=== PATIENT | female | born 1965 | race Caucasian/White ===

== ENCOUNTER 2022-07-26 06:26 | Day surgery (SDC) | payer BC ==
[~2022-07-26 06:26] MED LIST: Lactated Ringers 1,000 ML IV SCH; cefOXitin 2 GM in Premix Bag 1 BAG IV ONE
[2022-07-26] MEDS ORDERED: Scopolamine 1.5 MG Transdermal Patch TOP ONE (06:30)
[2022-07-26] MEDS ORDERED: Albuterol 0.083% 2.5 MG/3 ML Neb Soln NEB PRN (06:51)
[2022-07-26] MEDS ORDERED: Metoclopramide 10 MG/2 ML SDV IVPUSH PRN (06:51)
[2022-07-26] MEDS ORDERED: Ondansetron 4 MG/2 ML SDV IVPUSH PRN (06:51)
[2022-07-26] MEDS ORDERED: Morphine 2 MG/ML SYRINGE IVPUSH PRN (06:51)
[2022-07-26] MEDS ORDERED: HYDROmorphone 1 MG/ML Syringe IVPUSH PRN (06:51)
[2022-07-26] MEDS ORDERED: Naloxone 0.4 MG/ML SDV IVPUSH PRN (06:51)
[2022-07-26] MEDS ORDERED: fentaNYL 50 MCG/ML SDV IVPUSH PRN (06:51)
[2022-07-26] MEDS ORDERED: fentaNYL 100 MCG/2 ML SDV ONE ×4 (07:26→08:41)
[2022-07-26] MEDS ORDERED: Propofol 200 MG/20 ML SDV ONE (07:26)
[2022-07-26] MEDS ORDERED: Ropivacaine 0.5% 5 MG/ML 30 ML SDV ONE ×2 (07:31→08:13)
[2022-07-26] MEDS ORDERED: Bupivacaine 0.5% 30 ML SDV ONE (07:31)
[2022-07-26] MEDS ORDERED: Famotidine 20 MG/2 ML SDV ONE (07:31)
[2022-07-26] MEDS ORDERED: Rocuronium Bromide 50 MG/5 ML Syringe ONE ×2 (07:33→09:28)
[2022-07-26] MEDS ORDERED: Magnesium Sulfate (4.06 MEQ/ML) 5 GM/10 ML SDV ONE (07:33)
[2022-07-26] MEDS ORDERED: Dexmedetomidine 200 MCG/2 ML SDV ONE (07:34)
[2022-07-26] MEDS ORDERED: Water For Injection, Sterile 20 ML ONE (07:34)
[2022-07-26] MEDS ORDERED: Indocyanine Green 25 MG SDV ONE (08:15)
[2022-07-26] MEDS ORDERED: cefOXitin 1 GM Vial ONE (08:15)
[2022-07-26] MEDS ORDERED: Ketamine 500 mg/10 ML MDV ONE (08:39)
[2022-07-26] MEDS ORDERED: HYDROmorphone 2 MG/ML Syringe ONE (09:25)
[2022-07-26] MEDS ORDERED: Ondansetron 4 MG/2 ML SDV ONE (09:26)
[2022-07-26] MEDS ORDERED: Glycopyrrolate 0.2 MG/ML SDV ONE (09:26)
[2022-07-26] MEDS ORDERED: ePHEDrine 50 MG/ML SDV ONE (09:26)
[2022-07-26] MEDS ORDERED: Dexamethasone 4 MG/ML 5 ML MDV ONE (09:26)
[2022-07-26] MEDS ORDERED: Ketorolac 30 MG/ML SDV ONE (09:26)
[2022-07-26] MEDS ORDERED: Phenylephrine 1% 10 MG/ML SDV ONE (09:26)
[2022-07-26] MEDS ORDERED: Sugammadex Sodium 200 MG/2 ML VIAL ONE (09:26)
[2022-07-26] MEDS ORDERED: hydrALAZINE 20 MG/ML SDV ONE (09:45)
[2022-07-26] MEDS ORDERED: Esmolol 100 MG/10 ML SDV ONE (09:45)
[2022-07-26] MEDS ORDERED: Acetaminophen/HYDROcodone 325-5 MG Tab PO PRN (09:54)
[2022-07-26] MEDS ORDERED: Morphine 4 MG/ML Syringe IVPUSH PRN (09:54)
[2022-07-26] MEDS ORDERED: Lactated Ringers 1,000 ML IV SCH (10:00)
== END 2022-07-26 11:07 | disposition home or self-care (01) ==
LOC: MW.SDS 06:26
PROVIDERS: ATTEND Surgery
DX: K81.1 Chronic cholecystitis (principal); K82.8 Other specified diseases of gallbladder; I10 Essential (primary) hypertension; E78.00 Pure hypercholesterolemia, unspecified; F32.A Depression, unspecified; E11.9 Type 2 diabetes mellitus without complications; K21.9 Gastro-esophageal reflux disease without esophagitis; E66.9 Obesity, unspecified; G47.33 Obstructive sleep apnea (adult) (pediatric); F17.210 Nicotine dependence, cigarettes, uncomplicated; Z79.899 Other long term (current) drug therapy; Z98.890 Other specified postprocedural states; Z68.41 Body mass index [BMI] 40.0-44.9, adult; Z79.4 Long term (current) use of insulin; Z79.84 Long term (current) use of oral hypoglycemic drugs; Z90.710 Acquired absence of both cervix and uterus
CPT/HCPCS: 47562; 82947; A9270; J0131; J0360; J0694; J1100; J1170; J1885; J2405; J2704; J2795; J3010; J3475; J3490; J7120; J2370

== ENCOUNTER 2023-11-15 08:53 | Emergency (ER) | payer BC ==
[2023-11-15 09:26] LABS: BASOPHILS ABSOLUTE AUTO 0.07 K/uL (0.00-0.20); BASOPHILS PERCENT AUTO 0.7 % (0.0-1.0); EOSINOPHILS ABSOLUTE AUTO 0.33 K/uL (0.00-0.45); EOSINOPHILS PERCENT AUTO 3.2 % (0.0-6.0); HEMATOCRIT 48.3 % (37.0-47.0); HEMOGLOBIN 15.8 g/dL (12.0-16.0); IMMATURE GRAN ABSOLUTE AUTO 0.04 K/uL (0.00-0.05); IMMATURE GRAN PERCENT AUTO 0.4 % (0.0-0.4); LYMPHOCYTES ABSOLUTE AUTO 3.53 K/uL (1.00-4.80); LYMPHOCYTES PERCENT AUTO 33.7 % (24.0-44.0); MEAN CORPUSCULAR HEMOGLOBIN 29.4 pg (28.0-32.0); MEAN CORPUSCULAR HGB CONC 32.7 g/dL (32.0-36.0); MEAN CORPUSCULAR VOLUME 89.9 fL (83.0-99.0); MEAN PLATELET VOLUME 9.7 fL (9.4-12.3); MONOCYTES ABSOLUTE AUTO 0.81 K/uL (0.00-0.80); MONOCYTES PERCENT AUTO 7.7 % (0.0-8.0); NEUTROPHILS ABSOLUTE AUTO 5.69 K/uL (1.80-7.70); NEUTROPHILS PERCENT AUTO 54.3 % (41.0-71.0); PLATELET COUNT,PLT 268 K/uL (150-400); RED BLOOD CELL COUNT 5.37 M/uL (4.10-5.30); WHITE BLOOD CELL COUNT,WBC 10.47 K/uL (3.9-11.3)
[2023-11-15 10:06] LABS: A/G RATIO 0.9 (0.9-1.6); ALANINE AMINOTRANSFERASE,ALT 30 IU/L (14-63); ALBUMIN 3.4 g/dL (3.4-5.0); ALKALINE PHOSPHATASE 91 U/L (46-116); ASPARTATE AMNIOTRANSFERASE,AST 17 IU/L (15-37); BILIRUBIN TOTAL 0.2 mg/dL (0.2-1.0); BLOOD UREA NITROGEN,BUN 19 mg/dL (7.0-18.0); CALCIUM 9.2 mg/dL (8.5-10.1); CARBON DIOXIDE,CO2 17.8 mmol/L (21.0-32.0); CHLORIDE,CL 103 mmol/L (98-107); CREATININE 0.9 mg/dL (0.6-1.0); EST CRCL DRUG DOSING (CG) 57.74 mL/min; GLUCOSE RANDOM 262 mg/dL (74-106); LIPASE 106 U/L (16-77); PROTEIN TOTAL,TP 7.1 g/dL (6.4-8.2); SODIUM,NA 136 mmol/L (136-145)
[2023-11-15 10:14] LABS: LACTIC ACID 3.1 mmol/L (0.4-2.0)
[2023-11-15 10:18] LABS: ESTIMATED GFR 75 mL/min (>60)
[2023-11-15] MEDS: Sodium Chloride 0.9% 1,000 ML IV ONE ×2 (10:21→11:58)
[2023-11-15] MEDS: Ondansetron 4 MG/2 ML SDV IVPUSH ONE (10:22)
[2023-11-15] MEDS: Morphine 4 MG/ML Syringe IVPUSH ONE (10:22)
[2023-11-15 10:38] LABS: APPEARANCE,URINE CLEAR; BILIRUBIN,URINE NEGATIVE (NEGATIVE); COLOR,URINE YELLOW; GLUCOSE,URINE >=1000 mg/dL (NEGATIVE); KETONES,URINE NEGATIVE (NEGATIVE); LEUKOCYTE ESTERASE,URINE NEGATIVE (NEGATIVE); NITRITE,URINE NEGATIVE (NEGATIVE); OCCULT BLOOD,URINE NEGATIVE (NEGATIVE); PH,URINE 5.5 (5.0-8.0); PROTEIN,URINE NEGATIVE (NEGATIVE); UROBILINOGEN,URINE 0.2 EU/dL (<2.0)
[2023-11-15] MEDS: Iopamidol 755 MG/ML 500 ML Multipack Bottle IVPUSH STA (11:11)
[2023-11-15] MEDS: Alum Hydro/Mag Hydro/Simeth XS 15 ML, Lidocaine 2% 5 ML PO ONE (11:59)
[2023-11-15 13:33] LABS: BASE EXCESS VENOUS -5.1 (-2.0-3.0); PH,VENOUS 7.3 (7.31-7.41)
[2023-11-15 14:09] LABS: CALCIUM 8.6 mg/dL (8.5-10.1); CARBON DIOXIDE,CO2 21.3 mmol/L (21.0-32.0); CREATININE 0.7 mg/dL (0.6-1.0); EST CRCL DRUG DOSING (CG) 74.23 mL/min; POTASSIUM,K 4.2 mmol/L (3.5-5.1)
== END 2023-11-15 15:16 | disposition home or self-care (01) ==
LOC: MW.ED 08:53
DX: R10.32 Left lower quadrant pain (principal); I10 Essential (primary) hypertension; K21.9 Gastro-esophageal reflux disease without esophagitis; E11.9 Type 2 diabetes mellitus without complications; F17.210 Nicotine dependence, cigarettes, uncomplicated; E78.00 Pure hypercholesterolemia, unspecified; Z79.899 Other long term (current) drug therapy; Z86.19 Personal history of other infectious and parasitic diseases; Z79.84 Long term (current) use of oral hypoglycemic drugs; Z90.49 Acquired absence of other specified parts of digestive tract
CPT/HCPCS: 36415; 74177; 80048; 80053; 81003; 82009; 82803; 83605; 83690; 84484; 85025; 93005; 96361; 96374; 96375; 99284; A9270; J2270; J2405; J7030; Q9967; 93010